=== PATIENT | female | born 1985 | race Two or more races ===

== ENCOUNTER 2019-06-21 05:50 | Day surgery (SDC) | payer MEDICAID ==
[~2019-06-21] VITALS: Ht 170.2 cm; Wt 122.5 kg
[2019-06-21 06:49] LABS: UCG SCREEN NEGATIVE
[2019-06-21] MEDS ORDERED: LACTATED RINGERS 1,000 ML IV SCH (06:50)
[2019-06-21] MEDS ORDERED: FENTANYL CITRATE/PF 50MCG/ML 2ML VIAL ONE ×2 (11:45→12:28)
[2019-06-21] MEDS ORDERED: MIDAZOLAM HCL 2 MG/2 ML VIAL ONE (11:46)
[2019-06-21] MEDS ORDERED: PROPOFOL 200MG/20ML VIAL IV ONE (11:46)
[2019-06-21] MEDS ORDERED: GLYCOPYRROLATE 0.2 MG/ML 2ML VIAL ONE ×2 (11:46→12:30)
[2019-06-21] MEDS ORDERED: ONDANSETRON HCL 4MG/2ML INJ ONE (11:50)
[2019-06-21] MEDS ORDERED: ROCURONIUM BROMIDE 10MG/ML VIAL 5ML IV ONE (11:52)
[2019-06-21] MEDS ORDERED: DEXAMETHASONE 4MG/ML 1ML VIAL ONE (11:52)
[2019-06-21] MEDS ORDERED: SODIUM CHLORIDE 0.9% 10ML VIAL ONE (12:04)
[2019-06-21] MEDS ORDERED: LIDOCAINE HCL/PF 1% 10 MG/ML 5ML VIAL ONE (12:04)
[2019-06-21] MEDS ORDERED: CEFAZOLIN SODIUM 1000MG/VIAL ONE (12:04)
[2019-06-21] MEDS ORDERED: HYDROMORPHONE HCL/PF 2MG/ML CPJ IV PRN ×2 (12:15→13:00)
[2019-06-21] MEDS ORDERED: MEPERIDINE HCL/PF 25MG/ML CPJ IV PRN ×3 (12:15→13:00)
[2019-06-21] MEDS ORDERED: LABETALOL 5MG/ML SYR 20 MG/4 ML SYRINGE IV PRN (12:15)
[2019-06-21] MEDS ORDERED: ONDANSETRON HCL 4MG/2ML INJ IV PRN ×3 (12:15→13:30)
[2019-06-21] MEDS ORDERED: BUPIVACAINE HCL/PF 0.5% (5MG/ML) 10ML ONE (12:30)
[2019-06-21] MEDS ORDERED: ALBUMIN HUMAN 12.5G/250ML (5%) IV ONE (12:46)
[2019-06-21] MEDS ORDERED: ALBUMIN HUMAN 12.5GM/50ML (25%) IV ONE (12:46)
[2019-06-21] MEDS ORDERED: SODIUM CHLORIDE 0.9% 1,000 ML IV ONE (12:50)
[2019-06-21] MEDS ORDERED: MORPHINE SULFATE 2 MG/ML CPJ (NOT FOR IM USE) IV PRN (13:00)
[2019-06-21] MEDS ORDERED: IBUP-2029 MT (13:21)
[2019-06-21] MEDS ORDERED: ACETAMINOPHEN 325MG TABLET PO PRN (13:30)
[2019-06-21] MEDS ORDERED: KETOROLAC 60MG/2ML VIAL IM NR (14:01)
[2019-06-21 14:09] VITALS: BP 153/86
[2019-06-21] MEDS ORDERED: DEXT 5%/0.45% NACL KCL 20MEQ/L 1,000 ML IV SCH (18:00)
== END 2019-06-21 15:00 | disposition home or self-care (01) ==
LOC: OR 05:50
PROVIDERS: ATTEND Specialist
DX: Z30.2 Encounter for sterilization (principal); D64.9 Anemia, unspecified; Z79.899 Other long term (current) drug therapy; Z90.49 Acquired absence of other specified parts of digestive tract; Z98.890 Other specified postprocedural states; Z88.1 Allergy status to other antibiotic agents
CPT/HCPCS: 58661; 81025; 88302; J0690; J1100; J1885; J2250; J2405; J2704; J3010; J3490; P9041; P9047